=== PATIENT | male | born 1970 | race Caucasian/White ===

== ENCOUNTER 2017-06-14 20:39 | Emergency (ER) | payer OTHER ==
[2017-06-14] MEDS ORDERED: Sodium Chloride 0.9% 1,000 ML IV ONE (20:41)
--- NOTE | 2017-06-14 20:48 | EDM.PDOC ---
ED HPI GENERAL MEDICAL PROBLEM - General Stated Complaint: AMBULANCE Time Seen by Provider: 06/14/17 20:42 Source of Information: Reports: Patient History Limitations: Reports: No Limitations - History of Present Illness INITIAL COMMENTS - FREE TEXT/NARRATIVE: HISTORY AND PHYSICAL: History of present illness: Patient is a 47 year old male who presents to the emergency room via EMS with complaints of epigastric pain. Patient was driving his vehicle when he started to have epigastric pain that wrapped across his low chest. At this time the pain was 10/10; he pulled over and proceeded to call for emergency services. Upon EMS arrival pain was a 1 / 10. Denies any chest pain, shortness of breath, nausea, vomiting or diarrhea. History of hypertension, elevated cholesterol and cholecystectomy. No history of smoking. Family history of heart disease. Review of systems: As per history of present illness and below otherwise all systems reviewed and negative. Past medical history: As per history of present illness and as reviewed below otherwise noncontributory. Surgical history: As per history of present illness and as reviewed below otherwise noncontributory. Social history: No reported history of drug or alcohol abuse. Family history: As per history of present illness and as reviewed below otherwise noncontributory. Physical exam: Gen.: Nontoxic appearing 47-year-old male. Able to speak in full sentences without shortness of breath. Alert and oriented. HEENT: Atraumatic, normocephalic, pupils reactive, negative for conjunctival pallor or scleral icterus, mucous membranes moist, throat clear, neck supple, nontender, trachea midline. Lungs: Clear to auscultation, breath sounds equal bilaterally, chest nontender. Nonreproducible with palpation. Heart: S1S2, regular rate and rhythm Abdomen: Soft, nondistended, epigastric tenderness with deep palpation. Negative for masses or hepatosplenomegaly. Negative for costovertebral tenderness. Pelvis: Stable nontender. Genitourinary: Deferred. Rectal: Deferred. Extremities: Atraumatic, negative for cords or calf pain. Neurovascular unremarkable. Neuro: Awake, alert, oriented. Cranial nerves II through XII unremarkable. Cerebellum unremarkable. Motor and sensory unremarkable throughout. Exam nonfocal. Labs, EKG and chest x-ray were all normal today. These results were reviewed with the patient and the multiple family members at the bedside. At this time I did offer an admission to rule out if they were concerned of it being heart related. Patient states the pain is located in the epigastrium, I did explain that this could be a atypical symptom, they voice understanding. Patient states that they do live 2 blocks with from the hospital and if he does have return of symptoms or new symptoms that they will come back for an evaluation. Patient declined admission for observation. Disks versus benefits were discussed. Patient will be discharge and follow-up with his primary care provider. He states he needs to see his PCP anyway for refill of his cholesterol medication. They are agreeable to plan of care and deny any further questions at this time. Diagnostics: CBC, CMP, troponin, EKG, one view chest, amylase, lipase, H. pylori Therapeutics: IV fluid Impression: Epigastric pain Plan: 1. Admission to the hospital was declined. As we discussed, I would like you to follow-up with your primary care provider in the next 1-2 days. 2. Please start taking a 81 mg baby aspirin once daily. Share this with your PCP. 3. Return to the ED as needed and as discussed. Definitive disposition and diagnosis as appropriate pending reevaluation and review of above. Onset: Today Duration: Minutes: Location: Reports: Abdomen - Related Data Allergies Allergy/AdvReac Type Severity Reaction Status Date / Time No Known Allergies Allergy Verified 06/14/17 20:43 Home Meds: Home Meds atorvaSTATin [Lipitor] 10 mg PO BEDTIME 06/14/17 [History] Past Medical History Cardiovascular History: Reports: High Cholesterol - Infectious Disease History Infectious Disease History: Reports: Chicken Pox - Past Surgical History GI Surgical History: Reports: Cholecystectomy Social & Family History - Family History Family Medical History: Noncontributory - Tobacco Use Smoking Status *Q: Never Smoker - Caffeine Use Caffeine Use: Reports: None - Recreational Drug Use Recreational Drug Use: No ED ROS GENERAL - Review of Systems Review Of Systems: ROS reveals no pertinent complaints other than HPI. ED EXAM, GENERAL - Physical Exam Exam: See Below (See dictation) EKG INTERPRETATION EKG Date: 06/14/17 Time: 20:44 Rhythm: NSR Rate (Beats/Min): 62 EKG Interpretation Comments: Reviewed by myself and Dr Lainez. No previous EKG's available Course - Vital Signs Last Recorded V/S: Last Vital Signs Temp 36.3 C 06/14/17 20:39 Pulse 69 11/10/17 20:39 Resp 18 06/14/17 20:39 BP 132/93 H 06/14/17 20:39 Pulse Ox 97 06/14/17 20:39 - Orders/Labs/Meds Orders: Active Orders 24 hr Category Date Time Status EKG Documentation Completion [RC] STAT Care 06/14/17 20:41 Active Chest 1V Frontal [CR] Stat Exams 06/14/17 20:41 Taken Labs: Laboratory Tests 06/14/17 06/14/17 06/14/17 Range/Units 20:54 20:54 20:54 WBC 5.68 (4.0-11.0) K/uL RBC 4.92 (4.50-5.90) M/uL Hgb 14.9 (13.0-17.0) g/dL Hct 42.2 (38.0-50.0) % MCV 85.8 (80.0-98.0) fL MCH 30.3 (27.0-32.0) pg MCHC 35.3 (31.0-37.0) g/dL RDW Std Deviation 39.6 (28.0-62.0) fl RDW Coeff of Richie 13 (11.0-15.0) % Plt Count 189 (150-400) K/uL MPV 9.70 (7.40-12.00) fL Neut % (Auto) 62.4 (48.0-80.0) % Lymph % (Auto) 28.9 (16.0-40.0) % Giles % (Auto) 6.9 (0.0-15.0) % Eos % (Auto) 1.4 (0.0-7.0) % Baso % (Auto) 0.4 (0.0-1.5) % Neut # (Auto) 3.6 (1.4-5.7) K/uL Lymph # (Auto) 1.6 (0.6-2.4) K/uL Giles # (Auto) 0.4 (0.0-0.8) K/uL Eos # (Auto) 0.1 (0.0-0.7) K/uL Baso # (Auto) 0.0 (0.0-0.1) K/uL Nucleated RBC % 0.0 /100WBC Nucleated RBCs # 0 K/uL Sodium 139 (136-146) mmol/L Potassium 3.8 (3.5-5.1) mmol/L Chloride 106 (98-110) mmol/L Carbon Dioxide 25 (21-31) mmol/L BUN 10 (6.0-23.0) mg/dL Creatinine 0.8 (0.6-1.5) mg/dL Est Cr Clr Drug Dosing 107.87 mL/min Estimated GFR (MDRD) > 60.0 ml/min Glucose 104 (60-110) mg/dL Calcium 8.9 (8.8-10.8) mg/dL Total Bilirubin 1.7 H (0.1-1.5) mg/dL AST 41 H (5-40) IU/L ALT 41 (8-54) IU/L Alkaline Phosphatase 116 (40-150) Troponin I < 0.10 (0.0-0.29) NG/ML Total Protein 7.1 (6.0-8.0) g/dL Albumin 4.1 (3.5-5.0) g/dL Globulin 3.0 (2.0-3.5) g/dL Albumin/Globulin Ratio 1.4 (1.3-2.8) Amylase 45 (10-90) U/L Lipase 31 (7-80) U/L H. pylori IgG Antibody NEGATIVE (NEG) Meds: Medications Discontinued Medications Generic Name Dose Route Start Last Admin Trade Name Freq PRN Reason Stop Dose Admin Famotidine 20 mg 06/14/17 20:49 06/14/17 21:04 Pepcid IVPUSH 06/14/17 20:50 20 mg ONETIME ONE Administration Sodium Chloride 1,000 mls @ 999 mls/hr 06/14/17 20:41 06/14/17 21:03 Normal Saline IV 06/14/17 21:41 999 mls/hr STAT ONE Administration Departure - Departure Time of Disposition: 21:47 Disposition: Home, Self-Care 01 Clinical Impression: Epigastric pain - Discharge Information Referrals: Steve Gaston MD [Primary Care Provider] - Additional Instructions: My general discharge The following information is given to patients seen in the emergency department who are being discharged to home. This information is to outline your options for follow-up care. We provide all patients seen in our emergency department with a follow-up referral. The need for follow-up, as well as the timing and circumstances, are variable depending upon the specifics of your emergency department visit. If you don't have a primary care physician on staff, we will provide you with a referral. We always advise you to contact your personal physician following an emergency department visit to inform them of the circumstance of the visit and for follow-up with them and/or the need for any referrals to a consulting specialist. The emergency department will also refer you to a specialist when appropriate. This referral assures that you have the opportunity for follow-up care with a specialist. All of these measure are taken in an effort to provide you with optimal care, which includes your follow-up. Under all circumstances we always encourage you to contact your private physician who remains a resource for coordinating your care. When calling for follow-up care, please make the office aware that this follow-up is from your recent emergency room visit. If for any reason you are refused follow-up, please contact the [facility] Emergency Department at and asked to speak to the emergency department charge nurse. [facility] [address] [place] [address] 1. Admission to the hospital was declined. As we discussed, I would like you to follow-up with your primary care provider in the next 1-2 days. 2. Please start taking a 81 mg baby aspirin once daily. Share this with your PCP. 3. Return to the ED as needed and as discussed. - My Orders Last 24 Hours: My Active Orders 06/14/17 20:41 EKG Documentation Completion [RC] STAT Chest 1V Frontal [CR] Stat - Assessment/Plan Last 24 Hours: My Active Orders 06/14/17 20:41 EKG Documentation Completion [RC] STAT Chest 1V Frontal [CR] Stat
[2017-06-14] MEDS ORDERED: Famotidine 20 MG/2 ML SDV IVPUSH ONE (20:49)
[2017-06-14 21:26] LABS: CHLORIDE,CL 106 mmol/L (98-110); SODIUM,NA 139 mmol/L (136-146)
[2017-06-14 22:15] VITALS: BP 110/69
--- NOTE | 2017-06-17 10:39 | CR ---
EXAM DATE: 06/14/17 PATIENT'S AGE: 47 Patient: JOHNATHAN ALEMAN Facility: [place], [place] Site . Site : 1970 Study: XRay Chest [id number] 9:19:29 PM Ordering Physician: Doctor Prado Final Report: INDICATION: epigastric pain TECHNIQUE: Chest 1 view. COMPARISON: 06/06/16 FINDINGS: Cardiovascular and mediastinum: Heart size and vasculature are normal in caliber and appearance. Mediastinum is within normal limits. Lungs and pleural space: Lungs are clear. No sign of infiltrate or mass. No sign of pleural effusion. No pneumothorax. Bones and soft tissues: No significant findings. IMPRESSION: Unremarkable chest. Dictated by: Steve Oglesby MD @ 06/14/2017 21:30:37 (Electronic Signature) Report Signed by Proxy. [facility]
== END 2017-06-14 22:13 | disposition home or self-care (01) ==
LOC: MW.ED 20:39
DX: R10.13 Epigastric pain (principal); E78.00 Pure hypercholesterolemia, unspecified
CPT/HCPCS: 36415; 71010; 80053; 82150; 83690; 84484; 85025; 86677; 93005; 96361; 96374; 99285; J7040; 99282